=== PATIENT | female | born 1990 | race Caucasian/White ===

== ENCOUNTER 2016-12-02 15:17 | Emergency (ER) | payer OTHER ==
[2016-12-02 15:28] VITALS: BP 105/66; TEMP 102.1; BMI 21.2
[2016-12-02] MEDS ORDERED: DILAUDID 1 MG/ML SYRINGE IVP STA (15:35)
[2016-12-02 15:56] LABS: BASOPHILS % (AUTO) 0.3 % (0.0-3.0); EOSINOPHILS % (AUTO) 0.2 % (0.0-7.0); HEMATOCRIT 37.7 % (37.0-47.0); HEMOGLOBIN 12.6 g/dl (12.0-16.0); IMMATURE GRANULOCYTE % (AUTO) 0.3 % (0.0-5.0); LYMPHOCYTES # (AUTO) 1.2 K/uL (0.60-3.4); LYMPHOCYTES % (AUTO) 11.3 (10.0-50.0); MEAN CORPUSCULAR HEMOGLOBIN 30.7 pg (27.0-31.0); MEAN CORPUSCULAR HGB CONC 33.4 (31.8-35.4); MONOCYTES # (AUTO) 0.8 K/uL (0.4-2.0); MONOCYTES % (AUTO) 6.8 (0-10); NEUTROPHILS # (AUTO) 8.9 K/ul (2.0-6.9); NEUTROPHILS % (AUTO) 81.1; PLATELET COUNT 194 10^3/uL (140-440); WHITE BLOOD COUNT 10.95 K/ul (4.6-10.2)
[2016-12-02] MEDS ORDERED: DILAUDID 1 MG/ML SYRINGE IM STA (16:04)
[2016-12-02 16:14] LABS: ALBUMIN 3.3 g/dL (3.4-5.0); ALBUMIN/GLOBULIN RATIO 0.94; ANION GAP 10.2; BILIRUBIN,TOTAL 0.53 mg/dL (0.00-1.20); BUN/CREATININE RATIO 6.17; CREATININE 0.81 mg/dL (0.60-1.30); POTASSIUM 3.2 mmol/L (3.5-5.10); TOTAL PROTEIN 6.8 g/dL (6.4-8.2)
[2016-12-02 16:14] LABS: BILIRUBIN,URINE Negative (NEGATIVE); KETONES,URINE Negative (NEGATIVE); LEUKOCYTE ESTERASE ,URINE 2+ (NEGATIVE); NITRITE,URINE Positive (NEGATIVE); PH,URINE 5.5 (5-9); PROTEIN,URINE 3+ (NEGATIVE); URINE, BLOOD 2+ (NEGATIVE)
[2016-12-02 16:20] LABS: URINE PREGNANCY INTERNAL QC INTERNAL QC VALID
[2016-12-02 16:21] LABS: ADD URINE MICROSCOPIC YES
[2016-12-02 16:22] LABS: BACTERIA,URINE 3+ (NOT PRESENT)
[2016-12-02] MEDS ORDERED: ROCEPHIN 1 GM in SODIUM CHLORIDE 50 ML IV STA (16:42)
[2016-12-02] MEDS ORDERED: CIPRO PO STA (16:44)
--- NOTE | 2016-12-02 17:01 | CT ---
EXAM: CT abdomen pelvis without contrast HISTORY: Abdominal pain and bilateral back pain with urination COMPARISON: CT abdomen pelvis 04/01/2013 TECHNIQUE: Serial axial images of the abdomen pelvis were performed from the lung bases through the inferior pelvis without contrast. These were viewed in multiple planes. FINDINGS: The lung bases demonstrate mild bibasilar atelectasis. The liver demonstrates focal low attenuation adjacent to the falciform ligament suggestive of hepati c steatosis. The gallbladder is mildly distended. The adrenal glands are normal. There is no hydr onephrosis, hydroureter or visualized stone. The spleen is unchanged. The pancreas is normal. The stomach is mildly distended. Small bowel in the abdomen pelvis is unremarkable. The colon demonstrates moderate amount of stool in the distal colon. There is no evidence of inflammation or colitis. There is no free air or free fluid identified. Uterus is poorly evaluated and appears lobular. The urinary bladder is partially distended. The osseous structures are unremarkable. IMPRESSION: 1. No visualized renal stone, hydronephrosis or hydroureter. 2. Lobular appearance of the uterus on this limited evaluation due to lack of contrast.
--- NOTE | 2016-12-02 17:05 | US ---
EXAM: Transvaginal pelvic ultrasound HISTORY: Pelvic pain COMPARISON: CT abdomen pelvis same day and prior CT abdomen pelvis 03/29/2013 TECHNIQUE: Transvaginal pelvic ultrasound was performed to better evaluate the structures. Limited Doppler was provided. FINDINGS: The uterus measures 7.7 x 3.7 x 4.6 cm. The endometrium measures 0.8 cm in thickness. Ce rvix is normal in appearance with multiple cysts. The right ovary measures 3.8 x 2.4 x 2.2 cm. There is normal color Doppler flow. There is a complex hypoechoic rounded lesion in the right ovary with no internal color Doppler flow measuring 1.3 x 1. 0 cm. The left ovary measures 3.4 x 2.2 x 2.3 cm. There is normal color Doppler flow. In the left adnexa there is an elongated area suspicious for fluid collection which may represent hy drosalpinx versus bowel. There is hypervascularity in the left adnexa which is a nonspecific findin g. IMPRESSION: 1. Hypoechoic tubular fluid collection in the left adnexa adjacent to the ovary may represent hydro salpinx versus fluid collection. There is adjacent hypervascularity of unknown etiology and may rep resent prominent pelvic vessels. 2. Bilateral ovarian cyst with a complex hypoechoic lesion in the right ovary with no internal color Doppler flow that may represent hemorrhagic versus ruptured cyst.
[2016-12-02] MEDS ORDERED: TORADOL IM STA (17:09)
--- NOTE | 2016-12-02 17:09 | ED.PDOC ---
General ED Provider: Dr. SYDNEY RAY Chief Complaint: Back Pain Stated Complaint: back pain abdominal pain Time Seen by Physician: 15:20 (seen with staff) Mode of Arrival: Walk-In Information Source: Patient Exam Limitations: No limitations Primary Care Provider: DANELLE BRISENO Nursing and Triage Documentation Reviewed and Agree: Yes GI Complaint Exam - Abdominal Pain Complaint/Exam Onset: Gradual Duration: this morning Symptoms Are: Still present Timing: Constant Initial Severity: Moderate Current Severity: Moderate Location of Pain: RLQ Character: Reports: Throbbing, Cramping Alleviating: Reports: Medication Associated Signs and Symptoms: Reports: Back pain. Denies: Diaphoresis, Fever, Cough, Chest pain, Dizziness, Constipation, Blood in stool, Dysuria, Urinary frequency, Decreased urine output, Decreased appetite, Vaginal bleeding, Vaginal discharge, Nausea, Vomiting, Diarrhea, Sore throat, Decreased activity AAA Risk Factors: Reports: None Cardiac Risk Factors: Reports: None Ectopic Risk Factors: Reports: Tubal ligation Ovarian Torsion Risk Factors: Reports: Reproductive age, Ovarian cysts Surgical Obstruction Risk Factors: Reports: None Related Surgical History: Reports: None Patient Rh Status: Unknown Differential Diagnoses: Appendicitis, Bowel Obstruction, Constipation, Pancreatitis, Renal Colic, Ureteral Stone, Ovarian Cyst Review of Systems - Review Of Systems Constitutional: Reports: No symptoms Eyes: Reports: No symptoms Ears, Nose, Mouth, Throat: Reports: No symptoms Respiratory: Reports: No symptoms Cardiac: Reports: No symptoms GI: Reports: Abdominal pain : Reports: Flank pain, Pain Musculoskeletal: Reports: No symptoms Skin: Reports: No symptoms Neurological: Reports: No symptoms Endocrine: Reports: No symptoms Hematologic/Lymphatic: Reports: No symptoms All Other Systems: Reviewed and Negative Past Medical History - Past Medical History Previously Healthy: Yes Endocrine: Reports: None Cardiovascular: Reports: None Respiratory: Reports: None Hematological: Reports: None Gastrointestinal: Reports: None Genitourinary: Reports: None Neuro/Psych: Reports: None Musculoskeletal: Reports: None Cancer: Reports: None Last Menstrual Period: no period in 3 years. - Surgical History General Surgical History: Reports: Unknown - Family History Family History: Reports: Unknown - Social History Smoking Status: Current some day smoker Hx Substance Use: No Alcohol Screening: None Physical Exam - Physical Exam Appearance: Ill-appearing Eyes: SHANNON, EOMI, Conjunctiva clear ENT: Ears normal, Nose normal, Oropharynx normal Respiratory: Airway patent, Breath sounds clear, Breath sounds equal, Respirations nonlabored Cardiovascular: RRR, Pulses normal, No rub, No murmur GI/: Soft, Nontender, No masses, Bowel sounds normal, No Organomegaly Musculoskeletal: Normal strength, ROM intact, No edema, No calf tenderness Skin: Warm, Dry, Normal color Neurological: Sensation intact, Motor intact, Reflexes intact, Cranial nerves intact, Alert, Oriented Psychiatric: Affect appropriate, Mood appropriate Interpretation - Radiology Interpretation Radiology Interpretation By: Radiologist Radiology Results: Positive (ruptured ovarian cysts , complex right sided ovary cyst) Re-Evaluation - Re-Evaluation Time of Re-Evaluation: 17:12 Status: Improved Vital Signs Stable: Yes Pain Level: 4 Appearance: NAD Lungs: Clear Skin: Warm and Dry Neuro: Alert and Oriented X3 CV: RRR Critical Care Note - Critical Care Note Total Time (mins): 0 Course - Course Hematology/Chemistry: 12/02/16 15:40 12/02/16 15:40 Orders, Labs, Meds: Lab Review 12/02/16 12/02/16 15:40 15:45 WBC 10.95 H RBC 4.10 L Hgb 12.6 Hct 37.7 MCV 92.0 MCH 30.7 MCHC 33.4 RDW Coeff of Ayush 14.4 Plt Count 194 Immature Gran % (Auto) 0.3 Neut % (Auto) 81.1 Lymph % (Auto) 11.3 [place] % (Auto) 6.8 Eos % (Auto) 0.2 Baso % (Auto) 0.3 Immature Gran # (Auto) 0.0 Neut # 8.9 H Lymph # 1.2 [place] # 0.8 Eos # 0.0 Baso # 0.0 Sodium 136 Potassium 3.2 L Chloride 102 Carbon Dioxide 27 Anion Gap 10.2 BUN 5 L Creatinine 0.81 Estimated GFR (MDRD) 86.00 BUN/Creatinine Ratio 6.17 Glucose 109 Lactic Acid 12.3 Calcium 9.0 Total Bilirubin 0.53 AST 60 H ALT 58 Alkaline Phosphatase 81 Total Protein 6.8 Albumin 3.3 L Globulin 3.5 Albumin/Globulin Ratio 0.94 Procalcitonin 1.66 Urine Color Yellow Urine Clarity Cloudy Urine pH 5.5 Ur Specific [place] 1.025 Urine Protein 3+ Urine Glucose (UA) Negative Urine Ketones Negative Urine Blood 2+ Urine Nitrite Positive Urine Bilirubin Negative Urine Urobilinogen 0.2 Ur Leukocyte Esterase 2+ Urine Microscopic RBC 10-20 Urine Microscopic WBC 30-50 Ur Squamous Epith Cells Not present Urine Bacteria 3+ Urine Test Negative Orders Category Date Time Status ED IV/MEDIPORT/POWERPORT .ONCE EMERGENCY 12/02/16 15:32 Active IV [ED IV/MEDIPORT/POWERPORT] .ONCE EMERGENCY 12/02/16 15:34 Inactive BLOOD CULTURE Stat LAB 12/02/16 15:40 Received CBC W/ AUTO DIFF Stat LAB 12/02/16 15:40 Completed COMPREHENSIVE METABOLIC PANEL Stat LAB 12/02/16 15:40 Completed LACTIC ACID Stat LAB 12/02/16 15:40 Completed PROCALCITONIN Stat LAB 12/02/16 15:40 Completed URINALYSIS C & S IF INDICATED Stat LAB 12/02/16 15:45 Completed URINE CULTURE Stat LAB 12/02/16 15:45 Received URINE Stat LAB 12/02/16 15:45 Completed 0.9 % Sodium Chloride [Saline Flush] MEDS 12/02/16 15:32 Active 1 syr IVF PRN PRN 0.9 % Sodium Chloride [Saline Flush] MEDS 12/02/16 15:34 Discontinued 1 syr IVF PRN PRN Ciprofloxacin HCl [Cipro] MEDS 12/02/16 16:44 Discontinued 500 mg PO ONCE STA Hydromorphone HCl [Dilaudid 1 mg/ml Syringe] MEDS 12/02/16 16:04 Discontinued 0.5 mg IM ONCE STA CT ABDOMEN/PELVIS WO CONTRAST Stat RADS 12/02/16 15:36 Completed ULTRASOUND PELVIS HARMON VAGINAL/NONOB [U/S PELVIS HARMON RADS 12/02/16 15:32 Completed VAGINAL/NON OB] Stat Medications Generic Name Dose Route Start Last Admin Trade Name Freq PRN Reason Stop Dose Admin Sodium Chloride 1 syr 12/02/16 15:32 Saline Flush IVF PRN PRN To flush IV Discontinued Medications Generic Name Dose Route Start Last Admin Trade Name Freq PRN Reason Stop Dose Admin Ciprofloxacin 500 mg 12/02/16 16:44 12/02/16 16:55 Cipro PO 12/02/16 16:45 500 mg ONCE STA Administration Hydromorphone HCl 0.5 mg 12/02/16 16:04 12/02/16 16:05 Dilaudid 1 Mg/Ml Syringe IM 12/02/16 16:05 0.5 mg ONCE STA Administration Sodium Chloride 1 syr 12/02/16 15:34 Saline Flush IVF PRN PRN To flush IV Vital Signs: Temp Pulse Resp BP Pulse Ox 12/02/16 15:17 102.1 F H 129 H 18 105/66 100 Departure - Departure Time of Disposition: 17:12 Disposition: HOME SELF-CARE Discharge Problem: Cyst of ovary, right, Ruptured ovarian cyst, Backache UTI (urinary tract infection) Qualifiers: Urinary tract infection type: site unspecified Instructions: Abdominal Pain (ED), Acute Abdominal Pain (ED), Ruptured Ovarian Cyst (ED), Ovarian Cyst (ED), Urinary Tract Infection in Women (ED) Condition: Good Pt referred to PMD for follow-up: No Additional Instructions: Please call your Family Physician as soon as possible to schedule a follow-up appointment. you have an abnormal uterus, and cysts on your ovary right side which is in need of further evaluation MUST SEE PMD ALEJO Allergies/Adverse Reactions: Allergies cefaclor [From Ceclor] Adverse Reaction (Verified 12/02/16 15:25) ondansetron HCl [From Zofran] Adverse Reaction (Verified 12/02/16 15:25) Home Medications: Ambulatory Orders 1 [No Reported Medications] 12/02/16 Disposition Discussed With: Patient, Family
[2016-12-02] MEDS ORDERED: MORPHINE 4 MG/ML SYRINGE IVP STA (17:10)
== END 2016-12-02 17:50 | disposition home or self-care (01) ==
LOC: ED 15:17
DX: N83.201 Unspecified ovarian cyst, right side (principal); N39.0 Urinary tract infection, site not specified
CPT/HCPCS: 36415; 80053; 81001; 81025; 83605; 84145; 85025; 87040; 87086; 87186; 96372; 99283

== ENCOUNTER 2017-03-17 11:30 | Emergency (ER) ==
[2017-03-17 11:34] VITALS: BP 111/66; TEMP 101.1; BMI 24.3
--- NOTE | 2017-03-17 12:27 | ED.PDOC ---
General ED Provider: Dr. RENETTA SUAREZ Chief Complaint: Urinary Problem Stated Complaint: Urinating frequently, urinary urgency, noted blood in urine x 1 week. Migraine WU, first one in years, onset last night, with nausea & photophobia. Abdomen not painful but very tender to touch. Time Seen by Physician: 12:21 Mode of Arrival: Walk-In Information Source: Patient Primary Care Provider: DANELLE BRISENO Nursing and Triage Documentation Reviewed and Agree: Yes Complaint Exam - UTI Female Complaint/Exam Patient Complains of: Reports: Blood in urine Onset/Duration: onje week Symptoms Are: Still present Timing: Constant Initial Severity: Moderate Current Severity: Moderate Location of Pain: Reports: None (no abdominal pain but migraine WU since last night) Patient Rh Status: Unknown Related Surgical History: Reports: Tubal Ligation CVA Tenderness: Yes Suprapubic Tenderness: Yes (entire abdomen is tender to palpation) Differential Diagnoses: Other (UTI, migraine WU) Review of Systems - Review Of Systems Constitutional: Reports: No symptoms Eyes: Reports: Photophobia Ears, Nose, Mouth, Throat: Reports: No symptoms Respiratory: Reports: No symptoms Cardiac: Reports: No symptoms GI: Reports: Nausea : Reports: Frequency (has to go "all the time"), Hematuria Musculoskeletal: Reports: No symptoms Skin: Reports: No symptoms Neurological: Reports: Headache All Other Systems: Reviewed and Negative Past Medical History - Past Medical History Previously Healthy: Yes Endocrine: Reports: None Cardiovascular: Reports: None Respiratory: Reports: None Hematological: Reports: None Gastrointestinal: Reports: None Genitourinary: Reports: None Neuro/Psych: Reports: None, Migraine Musculoskeletal: Reports: None Cancer: Reports: None Last Menstrual Period: "i don't have them - Surgical History General Surgical History: Reports: Tubal ligation, (x2) - Family History Family History: Reports: Unknown - Social History Smoking Status: Current some day smoker Hx Substance Use: No Alcohol Screening: None Lives: With family - Immunizations Tetanus Shot up to Date: No Influenza Vaccine within 12 Months: No Pneumococcal Vaccine up to Date: No Physical Exam - Physical Exam Appearance: Ill-appearing, Well-nourished Ill-appearing: Mild Pain Distress: Moderate Eyes: SHANNON, EOMI, Conjunctiva clear ENT: Ears normal, Nose normal, Oropharynx normal Neck: Supple Respiratory: Airway patent, Breath sounds clear, Breath sounds equal, Respirations nonlabored Cardiovascular: RRR, Pulses normal, No rub, No murmur GI/: Soft, Bowel sounds normal, Tender (generalized tenderness to palpation) Musculoskeletal: Normal strength, ROM intact, No edema, No calf tenderness Skin: Warm, Dry, Normal color Neurological: Sensation intact, Motor intact, Reflexes intact, Cranial nerves intact, Alert, Oriented Psychiatric: Affect appropriate, Mood appropriate Critical Care Note - Critical Care Note Total Time (mins): 0 Course - Course Hematology/Chemistry: 03/17/17 12:45 03/17/17 12:45 Orders, Labs, Meds: Lab Review 03/17/17 03/17/17 03/17/17 11:50 12:45 12:45 WBC 13.78 H RBC 4.40 Hgb 13.5 Hct 39.5 MCV 89.8 MCH 30.7 MCHC 34.2 RDW Coeff of Ayush 13.4 Plt Count 196 Immature Gran % (Auto) 1.3 Neut % (Auto) 80.2 Lymph % (Auto) 8.8 L [place] % (Auto) 9.4 Eos % (Auto) 0.1 Baso % (Auto) 0.2 Immature Gran # (Auto) 0.2 Neut # 11.1 H Lymph # 1.2 [place] # 1.3 Eos # 0.0 Baso # 0.0 Sodium 133 L Potassium 4.2 Chloride 98 Carbon Dioxide 27 Anion Gap 12.2 BUN 6 L Creatinine 0.74 Estimated GFR (MDRD) 96.00 BUN/Creatinine Ratio 8.10 Glucose 94 Lactic Acid Calcium 9.3 Total Bilirubin 0.77 AST 15 ALT 15 Alkaline Phosphatase 76 Total Protein 7.1 Albumin 3.2 L Globulin 3.9 Albumin/Globulin Ratio 0.82 Urine Color Yellow Urine Clarity Turbid Urine pH 8.5 Ur Specific [place] 1.020 Urine Protein 2+ Urine Glucose (UA) Negative Urine Ketones Negative Urine Blood 2+ Urine Nitrite Negative Urine Bilirubin Negative Urine Urobilinogen 0.2 Ur Leukocyte Esterase 3+ Urine Microscopic WBC Tntc Ur Squamous Epith Cells Not present Urine Bacteria 2+ 03/17/17 12:45 WBC RBC Hgb Hct MCV MCH MCHC RDW Coeff of Ayush Plt Count Immature Gran % (Auto) Neut % (Auto) Lymph % (Auto) [place] % (Auto) Eos % (Auto) Baso % (Auto) Immature Gran # (Auto) Neut # Lymph # [place] # Eos # Baso # Sodium Potassium Chloride Carbon Dioxide Anion Gap BUN Creatinine Estimated GFR (MDRD) BUN/Creatinine Ratio Glucose Lactic Acid 7.5 Calcium Total Bilirubin AST ALT Alkaline Phosphatase Total Protein Albumin Globulin Albumin/Globulin Ratio Urine Color Urine Clarity Urine pH Ur Specific [place] Urine Protein Urine Glucose (UA) Urine Ketones Urine Blood Urine Nitrite Urine Bilirubin Urine Urobilinogen Ur Leukocyte Esterase Urine Microscopic WBC Ur Squamous Epith Cells Urine Bacteria Orders Category Date Time Status CBC W/ AUTO DIFF Stat LAB 03/17/17 12:45 Completed COMPREHENSIVE METABOLIC PANEL Stat LAB 03/17/17 12:45 Completed LACTIC ACID Stat LAB 03/17/17 12:45 Completed URINALYSIS C & S IF INDICATED Stat LAB 03/17/17 11:50 Completed URINE CULTURE Routine LAB 03/17/17 11:50 Received Vital Signs: Temp Pulse Resp BP Pulse Ox 03/17/17 11:31 101.1 F H 129 H 20 111/66 98 Departure - Departure Time of Disposition: 13:43 Disposition: HOME SELF-CARE Discharge Problem: Urinary tract infection Instructions: Urinary Tract Infection in Women (ED) Condition: Good Pt referred to PMD for follow-up: No (see PCP if no better in 3 days) Allergies/Adverse Reactions: Allergies cefaclor [From Ceclor] Adverse Reaction (Verified 03/17/17 11:34) ondansetron HCl [From Zofran] Adverse Reaction (Verified 03/17/17 11:34) Home Medications: Ambulatory Orders Sulfamethoxazole/Trimethoprim [Bactrim Ds 800/160 mg] 1 tab PO BID #20 tablet Disposition Discussed With: Patient
[2017-03-17 13:07] LABS: HEMATOCRIT 39.5 % (37.0-47.0); HEMOGLOBIN 13.5 g/dl (12.0-16.0); LYMPHOCYTES % (AUTO) 8.8 (10.0-50.0); MEAN CORPUSCULAR HEMOGLOBIN 30.7 pg (27.0-31.0); MEAN CORPUSCULAR HGB CONC 34.2 (31.8-35.4); MEAN CORPUSCULAR VOLUME 89.8 fl (81.0-99.0); NEUTROPHILS % (AUTO) 80.2; PLATELET COUNT 196 10^3/uL (140-440); WHITE BLOOD COUNT 13.78 K/ul (4.6-10.2)
[2017-03-17 13:08] LABS: ALBUMIN 3.2 g/dL (3.4-5.0); ALBUMIN/GLOBULIN RATIO 0.82; ANION GAP 12.2; BASOPHILS % (AUTO) 0.2 % (0.0-3.0); BILIRUBIN,TOTAL 0.77 mg/dL (0.00-1.20); BUN/CREATININE RATIO 8.1; CALCIUM 9.3 mg/dL (8.2-10.2); CREATININE 0.74 mg/dL (0.60-1.30); EOSINOPHILS % (AUTO) 0.1 % (0.0-7.0); IMMATURE GRANULOCYTE % (AUTO) 1.3 % (0.0-5.0); LYMPHOCYTES # (AUTO) 1.2 K/uL (0.60-3.4); MONOCYTES # (AUTO) 1.3 K/uL (0.4-2.0); MONOCYTES % (AUTO) 9.4 (0-10); NEUTROPHILS # (AUTO) 11.1 K/ul (2.0-6.9); POTASSIUM 4.2 mmol/L (3.5-5.10); TOTAL PROTEIN 7.1 g/dL (6.4-8.2)
[2017-03-17 13:13] LABS: BILIRUBIN,URINE Negative (NEGATIVE); KETONES,URINE Negative (NEGATIVE); LEUKOCYTE ESTERASE ,URINE 3+ (NEGATIVE); NITRITE,URINE Negative (NEGATIVE); PH,URINE 8.5 (5-9); PROTEIN,URINE 2+ (NEGATIVE); URINE, BLOOD 2+ (NEGATIVE)
[2017-03-17 13:15] LABS: ADD URINE MICROSCOPIC YES
[2017-03-17 13:19] LABS: BACTERIA,URINE 2+ (NOT PRESENT)
[2017-03-17] MEDS ORDERED: PHENERGAN 25 MG/ML VIAL IM STA (13:44)
[2017-03-17] MEDS ORDERED: MORPHINE 2 MG/ML SYRINGE IM STA (13:45)
== END 2017-03-17 14:40 | disposition home or self-care (01) ==
LOC: ED 11:30
DX: N39.0 Urinary tract infection, site not specified (principal); G43.909 Migraine, unspecified, not intractable, without status migrainosus; F17.210 Nicotine dependence, cigarettes, uncomplicated
CPT/HCPCS: 36415; 80053; 81001; 83605; 85025; 87086; 87186; 96372; 99283

== ENCOUNTER 2017-03-18 09:18 | Emergency (ER) ==
[2017-03-18 09:25] VITALS: BP 106/69; BMI 24.8
--- NOTE | 2017-03-18 09:43 | ED.PDOC ---
General ED Provider: Dr. RENETTA SUAREZ Chief Complaint: Fever Stated Complaint: Mother reports increased confusion today. Seen here yesterday with fever, dx'd with UTI and rx'd Bactrim DS of which she has taken 2 doses. Time Seen by Physician: 09:45 Mode of Arrival: Walk-In Information Source: Patient, Family Primary Care Provider: DANELLE BRISENO Nursing and Triage Documentation Reviewed and Agree: Yes Neurological Complaint Exam - Altered Mental Status Complaint/Exam Current Mental Status: Confusion Last Known Well: yesterday Onset: Sudden Duration: this AM Symptoms Are: Still present Timing: Constant Episodes Lasting: Hours Initial Severity: Mild Current Severity: Moderate Eye Deviation Present: No Character: Reports: Confusion Aggravating: Reports: Unknown (patient dx'd here with UTI yesterday. Taken two doses of Bactrim DS so far.) Alleviating: Reports: None Associated Signs and Symptoms: Reports: Fever, Illness Cardiac Risk Factors: Reports: Smoking CVA Risk Factors: Reports: Smoking Related Surgical History: Reports: None Carotid Bruit Present: No Nystagmus Present: No Gag Reflex Present: Yes Meningeal Signs Positive: No Focal Weakness: Present: None Focal Sensory Loss: Present: None Gait: Normal [id number]: Normal Findings Romberg Test Positive: No Babinski Sign: Negative Right, Negative Left Heel to Toe Normal: Yes Signs of Injury: Present: Normal findings Thrombolytics Considered: No Differential Diagnoses: Other (UTI, pyelonephritis) Review of Systems - Review Of Systems Constitutional: Reports: Fever Eyes: Reports: No symptoms Ears, Nose, Mouth, Throat: Reports: No symptoms Respiratory: Reports: No symptoms Cardiac: Reports: No symptoms GI: Reports: Abdominal pain (generalized abd pain, no CVA tenderness) : Reports: No symptoms Musculoskeletal: Reports: Muscle pain (generalized myalgias) Neurological: Reports: No symptoms (Oriented x 3 though has to think hard and responds slowly to questions, expecially regarding time orientation.) All Other Systems: Reviewed and Negative Past Medical History - Past Medical History Previously Healthy: Yes Endocrine: Reports: None Cardiovascular: Reports: None Respiratory: Reports: None Hematological: Reports: None Gastrointestinal: Reports: None Genitourinary: Reports: None Neuro/Psych: Reports: None, Migraine Musculoskeletal: Reports: None Cancer: Reports: None Last Menstrual Period: unknown - Surgical History General Surgical History: Reports: Tubal ligation, (x2) - Family History Family History: Reports: Unknown - Social History Smoking Status: Current some day smoker Hx Substance Use: Yes (HAS BEEN TO REHAB) Alcohol Screening: None Lives: With family - Immunizations Tetanus Shot up to Date: No Influenza Vaccine within 12 Months: No Pneumococcal Vaccine up to Date: No Physical Exam - Physical Exam Appearance: Ill-appearing, Well-nourished Ill-appearing: Mild Pain Distress: Mild Eyes: SHANNON, EOMI, Conjunctiva clear ENT: Ears normal, Nose normal, Oropharynx normal Neck: Supple Respiratory: Airway patent, Breath sounds clear, Breath sounds equal, Respirations nonlabored Cardiovascular: RRR, Pulses normal, No rub, No murmur GI/: Soft, No masses, Bowel sounds normal, Tender (generalized tenderness, no rebound or guarding) Musculoskeletal: Normal strength, ROM intact, No edema, No calf tenderness Skin: Warm, Dry, Normal color Neurological: Sensation intact, Motor intact, Reflexes intact, Cranial nerves intact, Alert, Oriented (except to time, uncertain of day or exact date. Knows its February,.), Alert to verbal, Alert to pain Psychiatric: Affect appropriate, Mood appropriate Re-Evaluation - Re-Evaluation Time of Re-Evaluation: 12:07 Status: Improved Vital Signs Stable: Yes Pain Level: Abd pain only present with palpation, unchanged Appearance: NAD Lungs: Clear Skin: Warm and Dry Neuro: Alert and Oriented X3 (sleeping when I came in, awoke to voice) CV: RRR Critical Care Note - Critical Care Note Total Time (mins): 0 Course - Course Hematology/Chemistry: 03/18/17 10:10 03/18/17 10:10 Orders, Labs, Meds: Lab Review 03/18/17 03/18/17 03/18/17 10:10 10:10 10:10 WBC 14.96 H RBC 4.16 L Hgb 12.9 Hct 36.9 L MCV 88.7 MCH 31.0 MCHC 35.0 RDW Coeff of Ayush 13.4 Plt Count 173 Immature Gran % (Auto) 0.9 Neut % (Auto) 78.8 Lymph % (Auto) 8.1 L [place] % (Auto) 11.9 H Eos % (Auto) 0.0 Baso % (Auto) 0.3 Immature Gran # (Auto) 0.1 Neut # 11.8 H Lymph # 1.2 [place] # 1.8 Eos # 0.0 Baso # 0.0 Sodium 131 L Potassium 3.8 Chloride 94 L Carbon Dioxide 25 Anion Gap 15.8 BUN 11 Creatinine 1.10 Estimated GFR (MDRD) 61.00 BUN/Creatinine Ratio 10.00 Glucose 113 H Lactic Acid 9.9 D Calcium 9.2 Total Bilirubin 0.63 AST 24 ALT 18 Alkaline Phosphatase 83 Total Protein 7.4 Albumin 3.0 L Globulin 4.4 Albumin/Globulin Ratio 0.68 Influenza A (Rapid) Influenza B (Rapid) 03/18/17 10:50 WBC RBC Hgb Hct MCV MCH MCHC RDW Coeff of Ayush Plt Count Immature Gran % (Auto) Neut % (Auto) Lymph % (Auto) [place] % (Auto) Eos % (Auto) Baso % (Auto) Immature Gran # (Auto) Neut # Lymph # [place] # Eos # Baso # Sodium Potassium Chloride Carbon Dioxide Anion Gap BUN Creatinine Estimated GFR (MDRD) BUN/Creatinine Ratio Glucose Lactic Acid Calcium Total Bilirubin AST ALT Alkaline Phosphatase Total Protein Albumin Globulin Albumin/Globulin Ratio Influenza A (Rapid) Negative Influenza B (Rapid) Negative Orders Category Date Time Status CBC W/ AUTO DIFF Stat LAB 03/18/17 10:10 Completed COMPREHENSIVE METABOLIC PANEL Stat LAB 03/18/17 10:10 Completed LACTIC ACID Stat LAB 03/18/17 10:10 Completed RAPID FLU A/B Stat LAB 03/18/17 10:50 Completed Acetaminophen [Tylenol] MEDS 03/18/17 10:35 Discontinued 650 mg PO ONCE STA Medications Discontinued Medications Generic Name Dose Route Start Last Admin Trade Name Freq PRN Reason Stop Dose Admin Acetaminophen 650 mg 03/18/17 10:35 03/18/17 10:52 Tylenol PO 03/18/17 10:36 650 mg ONCE STA Administration Vital Signs: Temp Pulse Resp BP Pulse Ox 03/18/17 11:55 97.2 F L 03/18/17 09:18 102.3 F H 120 H 20 106/69 96 Departure - Departure Time of Disposition: 12:11 Disposition: HOME SELF-CARE Discharge Problem: Urinary tract infection Instructions: Urinary Tract Infection in Women (ED) Condition: Good Pt referred to PMD for follow-up: No (See doctor if worsens or no better in 2 days) Additional Instructions: Take Tylenol as needed for fever Allergies/Adverse Reactions: Allergies cefaclor [From Ceclor] Adverse Reaction (Verified 03/18/17 09:27) ondansetron HCl [From Zofran] Adverse Reaction (Verified 03/18/17 09:27) Home Medications: Ambulatory Orders Sulfamethoxazole/Trimethoprim [Bactrim Ds 800/160 mg] 1 tab PO BID #20 tablet Disposition Discussed With: Patient
[2017-03-18 10:13] LABS: BASOPHILS % (AUTO) 0.3 % (0.0-3.0); HEMATOCRIT 36.9 % (37.0-47.0); HEMOGLOBIN 12.9 g/dl (12.0-16.0); IMMATURE GRANULOCYTE % (AUTO) 0.9 % (0.0-5.0); LYMPHOCYTES # (AUTO) 1.2 K/uL (0.60-3.4); LYMPHOCYTES % (AUTO) 8.1 (10.0-50.0); MEAN CORPUSCULAR VOLUME 88.7 fl (81.0-99.0); MONOCYTES # (AUTO) 1.8 K/uL (0.4-2.0); MONOCYTES % (AUTO) 11.9 (0-10); NEUTROPHILS # (AUTO) 11.8 K/ul (2.0-6.9); NEUTROPHILS % (AUTO) 78.8; PLATELET COUNT 173 10^3/uL (140-440); RED BLOOD COUNT 4.16 10^6/ul (4.20-5.40); WHITE BLOOD COUNT 14.96 K/ul (4.6-10.2)
[2017-03-18 10:31] LABS: ALBUMIN/GLOBULIN RATIO 0.68; ANION GAP 15.8; BILIRUBIN,TOTAL 0.63 mg/dL (0.00-1.20); CALCIUM 9.2 mg/dL (8.2-10.2); CREATININE 1.1 mg/dL (0.60-1.30); POTASSIUM 3.8 mmol/L (3.5-5.10); TOTAL PROTEIN 7.4 g/dL (6.4-8.2)
[2017-03-18] MEDS ORDERED: TYLENOL PO STA (10:35)
[2017-03-18 11:16] LABS: FLU INTERNAL QC INTERNAL QC VALID; RAPID FLU A NEGATIVE (NEGATIVE); RAPID FLU B NEGATIVE (NEGATIVE)
[2017-03-18 11:55] VITALS: TEMP 97.2
== END 2017-03-18 12:30 | disposition home or self-care (01) ==
LOC: ED 09:18
DX: N39.0 Urinary tract infection, site not specified (principal); R41.0 Disorientation, unspecified; F17.210 Nicotine dependence, cigarettes, uncomplicated
CPT/HCPCS: 36415; 80053; 83605; 85025; 87804; 99283

== ENCOUNTER 2017-11-21 08:35 | Outpatient (CLI) ==
--- NOTE | 2017-11-21 09:36 | US ---
EXAM: Ultrasound abdomen limited HISTORY: HCV antibody, nausea COMPARISON: CT abdomen pelvis 12/02/2016 TECHNIQUE: Ultrasound abdomen limited at right upper quadrant was performed FINDINGS: Pancreas obscured secondary bowel gas shadowing. Liver normal in size and echogenicity. A geographic echogenic region in the central liver measuring up to 3.8 cm correlates with an area of focal fatty infiltration demonstrated on prior CT. Main portal vein patent with normal direction of flow. Gallbladder fluid-filled without gallbladder wall thickening, pericholecystic fluid, or shadow ing gallstones. No biliary duct dilation with common bile duct measuring 0.3 cm. Right kidney measu res 11.1 cm in length without hydronephrosis. IMPRESSION: 1. No acute abnormality identified in the liver, gallbladder, or biliary system. 2. Area of focal fatty infiltration in the liver.
== END 2017-11-21 08:36 | disposition home or self-care (01) ==
LOC: RAD 08:35
PROVIDERS: ATTEND Nurse Practitioner
DX: R76.8 Other specified abnormal immunological findings in serum (principal); R11.0 Nausea

== ENCOUNTER 2018-09-07 20:56 | Emergency (ER) ==
[2018-09-07 21:10] VITALS: BP 127/63; TEMP 98.9; BMI 28.1
[2018-09-07] MEDS ORDERED: DEMEROL 50 MG/ML VIAL IM STA (22:23)
[2018-09-07] MEDS ORDERED: PHENERGAN 25 MG/ML VIAL IM STA (22:23)
[2018-09-07] MEDS ORDERED: MOTRIN PO STA (22:26)
--- NOTE | 2018-09-07 22:26 | ED.PDOC ---
General ED Provider: Dr. RICHIE SANTANA Chief Complaint: Ankle Pain/Injury Stated Complaint: Patient is a 28 year old female who female who comes to the ER with right foot and ankle pain after she jumped out of a trampoleen onto the ground but internally rotated the ankle. Unable to bear weight post injury Time Seen by Physician: 22:24 Mode of Arrival: Wheelchair Information Source: Patient Exam Limitations: No limitations Primary Care Provider: DANELLE BRISENO Nursing and Triage Documentation Reviewed and Agree: Yes Does patient meet sepsis criteria?: No System Inflammatory Response Syndrome: Not Applicable Sepsis Protocol: For patient's 13 years and over: Temp is 96.8 and below OR 101 and greater Pulse >90 BPM Resp >20/minute Acutely Altered Mental Status Are patient's symptoms suggestive of a new infection, such as: -Pneumonia -Skin, Soft Tissue -Endocarditis -UTI -Bone, Joint Infection -Implantable Device -Acute Abdominal Infection -Wound Infection -Meningitis -Blood Stream Catheter Infection -Unknown Musculoskeletal Complaint Exam - Ankle/Foot Complaint/Exam Location of Injury: Reports: Right, Ankle, Foot Mechanism of Injury: Reports: Trauma Onset/Duration: 2 hours ago Symptoms Are: Reports: Still present Onset of Pain: Reports: Immediate, Post accident Initial Severity: Severe Location: Reports: Discrete (mid ankle area ) Character: Reports: Aching, Throbbing Alleviating: Reports: Rest, Position Aggravating: Reports: Movement, Weight bearing, Prolonged standing Able to Bear Weight: No Associated Signs and Symptoms: Reports: Swelling Related History: Reports: Similar episode Gout Risk Factors: Reports: None Related Surgical History: Reports: None Lower Extremity Findings: Present: Swelling Achilles Tendon Abnormality: No Tenderness: Present: Medial malleolus, Lateral malleolus Limited Range of Motion: Present: Dorsiflexion Ankle/Foot Picture: 1 - area of Tenderness to palpation Differential Diagnosis: Closed Fracture, Sprain, Strain, Tendonitis Review of Systems - Review Of Systems Constitutional: Reports: No symptoms Eyes: Reports: No symptoms Ears, Nose, Mouth, Throat: Reports: No symptoms Respiratory: Reports: No symptoms Cardiac: Reports: No symptoms GI: Reports: No symptoms : Reports: No symptoms Musculoskeletal: Reports: Joint pain, Joint swelling Skin: Reports: No symptoms Neurological: Reports: No symptoms Endocrine: Reports: No symptoms Hematologic/Lymphatic: Reports: No symptoms All Other Systems: Reviewed and Negative Past Medical History - Past Medical History Previously Healthy: Yes Endocrine: Reports: None Cardiovascular: Reports: None Respiratory: Reports: None Hematological: Reports: None Gastrointestinal: Reports: Liver (Hepatitis C ) Genitourinary: Reports: None Neuro/Psych: Reports: Migraine, Anxiety, Depression, Other (meningitis ) Musculoskeletal: Reports: None Cancer: Reports: None Last Menstrual Period: spotting 3 months ago - irregular - Surgical History General Surgical History: Reports: Tubal ligation (2013), (x2), Tonsillectomy, Adenoidectomy - Family History Family History: Reports: Unknown - Social History Smoking Status: Current some day smoker, Heavy tobacco smoker Hx Substance Use: Yes (HAS BEEN TO REHAB) Alcohol Screening: None - Immunizations Tetanus Shot up to Date: No Influenza Vaccine within 12 Months: No Pneumococcal Vaccine up to Date: No Physical Exam - Physical Exam Appearance: Obese Pain Distress: Moderate Respiratory: Airway patent, Breath sounds clear, Breath sounds equal, Respirations nonlabored Cardiovascular: RRR, Pulses normal, No rub, No murmur Musculoskeletal: Limited ROM Neurological: Alert, Oriented Psychiatric: Anxious Interpretation - Radiology Interpretation Radiology Interpretation By: Radiologist Radiology Results: Negative Exam Interpreted: Other (ankle and foot ) Xray Comments: right ankle x ray Critical Care Note - Critical Care Note Total Time (mins): 0 Course - Course Orders, Labs, Meds: Orders Category Date Time Status ADOLFO [ED ADOLFO WRAP] .ONCE EMERGENCY 09/07/18 22:52 Active ED CRUTCHES .ONCE EMERGENCY 09/07/18 22:52 Active Ice [ED APPLY ICE AFFECTED AREA] .ONCE EMERGENCY 09/07/18 22:23 Active Ibuprofen [Motrin] MEDS 09/07/18 22:26 Discontinued 600 mg PO ONCE STA Meperidine HCl/Pf [Demerol 50 mg/ml Vial] MEDS 09/07/18 22:23 Discontinued 50 mg IM ONCE STA Promethazine HCl [Phenergan 25 mg/ml Vial] MEDS 09/07/18 22:23 Discontinued 25 mg IM ONCE STA ANKLE, RIGHT MIN 3 VIEWS Stat RADS 09/07/18 21:22 Completed FOOT, RIGHT 3 VIEWS Stat RADS 09/07/18 21:22 Completed Medications Discontinued Medications Generic Name Dose Route Start Last Admin Trade Name Freq PRN Reason Stop Dose Admin Ibuprofen 600 mg 09/07/18 22:26 09/07/18 22:35 Motrin PO 09/07/18 22:27 600 mg ONCE STA Administration Meperidine HCl 50 mg 09/07/18 22:23 09/07/18 22:29 Demerol 50 Mg/Ml Vial IM 09/07/18 22:24 50 mg ONCE STA Administration Promethazine HCl 25 mg 09/07/18 22:23 09/07/18 22:28 Phenergan 25 Mg/Ml Vial IM 09/07/18 22:24 25 mg ONCE STA Administration Vital Signs: Temp Pulse Resp BP Pulse Ox 09/07/18 21:04 98.9 F 84 20 127/63 99 Departure - Departure Time of Disposition: 23:00 Disposition: HOME SELF-CARE Discharge Problem: Right ankle sprain Qualifiers: Encounter type: initial encounter Involved ligament of ankle: unspecified ligament Qualified Code(s): S93.401A - Sprain of unspecified ligament of right ankle, initial encounter Instructions: Ankle Sprain (ED) Condition: Stable Pt referred to PMD for follow-up: Yes IPMP verified?: No Additional Instructions: Take Medications a prescribed Follow up with PCP in 3 days Prescriptions: Hydrocodone Bit/Acetaminophen [[place] 5-325] 1 each PO Q6HR PRN #15 tablet PRN Reason: severe pain Ibuprofen [Motrin] 600 mg PO Q6H PRN #30 tablet PRN Reason: Analgesia Allergies/Adverse Reactions: Allergies cefaclor [From Ceclor] Adverse Reaction (Verified 09/07/18 21:10) ondansetron HCl [From Zofran] Adverse Reaction (Verified 09/07/18 21:10) Home Medications: Ambulatory Orders Hydrocodone Bit/Acetaminophen [[place] 5-325] 1 each PO Q6HR PRN #15 tablet Ibuprofen [Motrin] 600 mg PO Q6H PRN #30 tablet 09/07/18 Disposition Discussed With: Patient, Family
--- NOTE | 2018-09-07 22:31 | DI ---
EXAM: Right ankle three views HISTORY: Injury COMPARISON: None. FINDINGS: Soft tissue swelling is noted laterally. The ankle mortise and talar dome are intact. Th ere is no acute fracture or dislocation. IMPRESSION: Lateral soft tissue swelling without acute findings.
--- NOTE | 2018-09-07 22:32 | DI ---
EXAM: Right foot three views HISTORY: Injury COMPARISON: None. FINDINGS: There is no acute fracture or dislocation. The surrounding soft tissues are unremarkable. IMPRESSION: No acute findings.
== END 2018-09-07 23:08 | disposition home or self-care (01) ==
LOC: ED 20:56
DX: S93.401A Sprain of unspecified ligament of right ankle, initial encounter (principal); W17.89XA Other fall from one level to another, initial encounter; Y93.44 Activity, trampolining; F17.210 Nicotine dependence, cigarettes, uncomplicated
CPT/HCPCS: 96372; 99283